=== PATIENT | male | born 1955 | race African-American/Black ===

== ENCOUNTER 2018-04-14 07:59 | Emergency (ER) | payer MEDICARE, MEDICAID ==
[~2018-04-14] VITALS: Ht 172.7 cm; Wt 98.0 kg
[~2018-04-14 07:59] MED LIST: ABAC300T9 PO; AMLO10TA4 PO; CARV6.2548 PO; ETRA200T PO; GEMF600T4 PO; KEPP500 PO; LISI10TA5 PO; NEPVIT PO; PHEN100O2 PO; PRAV20TA PO; RALT400T PO; SEVE800T8 PO; ZIDO300T12 PO
[2018-04-14] MEDS ORDERED: LEVETIRACETAM 1000MG/100ML 100 ML IV ONE (08:15)
[2018-04-14 09:19] LABS: CHLORIDE 96 mEq/L (98-107)
[2018-04-14 09:23] LABS: ETHANOL BLOOD < 10 mg/dL
[2018-04-14 09:30] LABS: HEMATOCRIT. 37.4 % (42.0-52.0); HEMOGLOBIN. 11.9 g/dL (14.0-18.0); MEAN CORPUSCULAR HEMOGLOBIN 28.3 pg (28.0-32.0); MEAN CORPUSCULAR VOLUME 89.2 fL (80.0-94.0); MEAN PLATELET VOLUME 7.6 fl (7.4-10.4); PLATELET 226 x1000/uL (130-400); RED CELL DISTRIBUTION WIDTH 16.9 % (11.6-14.6)
[2018-04-14] MEDS ORDERED: AMLODIPINE 10MG TABLET PO ONE (09:30)
[2018-04-14 10:45] LABS: PLATELET ESTIMATE NORMAL
[2018-04-14 11:41] VITALS: BP 214/118
== END 2018-04-14 11:42 | disposition home or self-care (01) ==
LOC: ER 07:59
DX: G40.909 Epilepsy, unspecified, not intractable, without status epilepticus (principal); R03.0 Elevated blood-pressure reading, without diagnosis of hypertension; I12.0 Hypertensive chronic kidney disease with stage 5 chronic kidney disease or end stage renal disease; N18.6 End stage renal disease; Z99.2 Dependence on renal dialysis; R25.1 Tremor, unspecified
CPT/HCPCS: 36415; 80053; 85025; 87186; 96365; 96366; 99283; J1953

== ENCOUNTER 2019-04-26 16:33 | Emergency (ER) | payer MEDICARE, MEDICAID ==
[~2019-04-26] VITALS: Ht 172.7 cm; Wt 82.0 kg
[~2019-04-26 16:33] MED LIST changes: -GEMF600T4 PO; +GEMF600T5 PO
[2019-04-26 17:23] VITALS: BP 131/75
== END 2019-04-27 02:49 | disposition left against medical advice (07) ==
LOC: ER 16:33
DX: Z53.21 Procedure and treatment not carried out due to patient leaving prior to being seen by health care provider (principal)

== ENCOUNTER 2019-07-29 07:15 | Emergency (ER) | payer MEDICARE, MEDICAID ==
[~2019-07-29] VITALS: Ht 182.9 cm; Wt 93.0 kg
[2019-07-29] MEDS ORDERED: LEVETIRACETAM 1000MG/100ML 100 ML IV ONE (08:15)
[2019-07-29 08:22] LABS: CHLORIDE 98 mEq/L (98-107); HEMATOCRIT. 34.2 % (42.0-52.0); HEMOGLOBIN. 11.3 g/dL (14.0-18.0); MEAN CORPUSCULAR HEMOGLOBIN 29.8 pg (28.0-32.0); MEAN CORPUSCULAR VOLUME 90.3 fL (80.0-94.0); MEAN PLATELET VOLUME 7.7 fl (7.4-10.4); PLATELET 200 x1000/uL (130-400); RED BLOOD CELL COUNT 3.78 mill/uL (4.7-6.1); RED CELL DISTRIBUTION WIDTH 16.7 % (11.6-14.6)
[2019-07-29 08:29] LABS: ETHANOL BLOOD < 10 mg/dL
[2019-07-29 09:01] LABS: PLATELET ESTIMATE NORMAL
[2019-07-29] MEDS: LEVETIRACETAM 1000MG/100ML 100 ML IV SCH ×2 (09:15→10:18)
[2019-07-29 10:25] VITALS: BP 125/66
== END 2019-07-29 11:47 | disposition home or self-care (01) ==
LOC: ER 07:29
DX: G40.909 Epilepsy, unspecified, not intractable, without status epilepticus (principal); I12.0 Hypertensive chronic kidney disease with stage 5 chronic kidney disease or end stage renal disease; N18.6 End stage renal disease; Z99.2 Dependence on renal dialysis; Z79.899 Other long term (current) drug therapy; E78.00 Pure hypercholesterolemia, unspecified
CPT/HCPCS: 36415; 80053; 80320; 85025; 96365; 99284; J1953; G0480